=== PATIENT | female | born 1955 | race Hispanic/Latino ===

== ENCOUNTER → 2019-10-28 | Outpatient (CLI) | payer OTHER | END | disposition home or self-care (01) | LOC: RAH 11:13 | PROVIDERS: ATTEND Urology | DX: N20.0 Calculus of kidney (principal); I87.8 Other specified disorders of veins; Z93.6 Other artificial openings of urinary tract status | CPT/HCPCS: 74018; 76100 ==

== ENCOUNTER → 2019-11-19 | Outpatient (CLI) | payer OTHER | END | disposition home or self-care (01) | LOC: RAH 16:04 | PROVIDERS: ATTEND Urology | DX: N20.0 Calculus of kidney (principal); Z46.6 Encounter for fitting and adjustment of urinary device | CPT/HCPCS: 74018; 76100 ==

== ENCOUNTER → 2022-08-27 | Outpatient (CLI) | payer OTHER ==
[2022-08-27 15:35] LABS: CREATININE 0.7 mg/dL (0.5-1.5); POTASSIUM 3.9 mmol/L (3.5-5.1); TOTAL PROTEIN, SERUM 7.2 g/dL (6.0-8.3)
== END | disposition home or self-care (01) ==
LOC: LAB 14:58
PROVIDERS: ATTEND Student in an Organized Health Care Education/Training Program
DX: R07.9 Chest pain, unspecified (principal); R94.31 Abnormal electrocardiogram [ECG] [EKG]
CPT/HCPCS: 36415; 80053

== ENCOUNTER → 2022-08-30 | Outpatient (CLI) | payer OTHER ==
[~2022-08-30] MED LIST: METOPROLOL TARTRATE 1 MG/ML 5ML VIAL IV ONE
== END | disposition home or self-care (01) ==
LOC: RAH 10:00
PROVIDERS: ATTEND Student in an Organized Health Care Education/Training Program
DX: R07.9 Chest pain, unspecified (principal)
CPT/HCPCS: 75574; J3490